=== PATIENT | male | born 1980 | race Caucasian/White ===

== ENCOUNTER 2016-08-02 21:34 | Emergency (ER) | payer OTHER ==
[~2016-08-02] VITALS: Ht 185.4 cm; Wt 96.5 kg
[2016-08-02 21:44] VITALS: Ht 185.4 cm; Wt 96.5 kg
[2016-08-03] MEDS ORDERED: DIPHTH/TET/ACEL PERTUSS (ADULT) 0.5 ML VIAL IM* ONE (00:30)
--- NOTE | 2016-08-03 01:04 | ERD ---
ER Documentation Chief Complaint Date/Time DATE: 08/03/16 TIME: 00:53 Chief Complaint nail went through his left thumb today. HPI This is a 36-year-old male who presents to emergency department today with left thumb pain after using a nail gun and accidentally putting a nail through his thumb. Denies any previous trauma. States he pulled out the nail. States he is not up-to-date on his tetanus vaccine. Denies any fevers or chills. ROS All systems reviewed and are negative except as per history of present illness. Medications Home Meds Active Scripts Sulfamethoxazole-Trimethoprim* (Bactrim* DS) 800-160 Mg Tab, 1 TAB PO BID for 7 Days, TAB Prov:JONNIE KUHN PA-C 08/03/16 Cephalexin* (Keflex*) 500 Mg Capsule, 500 MG PO QID for 7 Days, CAP Prov:JONNIE KUHNC 08/03/16 Naproxen* (Naprosyn*) 500 Mg Tablet, 500 MG PO BID Y for PAIN AND/OR INFLAMMATION, #30 TAB Prov:JONNIE KUHNC 08/03/16 Hydrocodone/Acetaminophen ([place] 10-325 Tablet) 1 Each Tablet, 1 TAB PO Q6H Y for PAIN, #10 TAB Prov:JONNIE KUHN PA-C 08/03/16 Allergies Allergies: Coded Allergies: No Known Allergy (Unverified , 08/02/16) PMhx/Soc Medical and Surgical Hx: pt denies Medical Hx, pt denies Surgical Hx Hx Alcohol Use: No Hx Substance Use: No Hx Tobacco Use: No Physical Exam Vitals Vital Signs Date Time Temp Pulse Resp B/P Pulse Ox O2 Delivery O2 Flow Rate FiO2 08/02/16 21:44 97.0 64 20 132/87 98 Physical Exam Const: No acute distress Head: Atraumatic Eyes: Normal Conjunctiva ENT: Normal External Ears, Nose and Mouth. Neck: Full range of motion..~ No meningismus. Resp: Clear to auscultation bilaterally Cardio: Regular rate and rhythm, no murmurs Abd: Soft, non tender, non distended. Normal bowel sounds Skin: Evidence of puncture wound left thumb. Localized erythema. No warmth. No evidence of cellulitis or purulent drainage Back: No midline or flank tenderness MSK: Left thumb with no obvious deformity. Evidence of puncture wound through and through. Mild swelling over thenar eminence Patient able to oppose thumb with all 5 fingers. Pulses 2+ per distal neurovascularly intact. Neur: Awake and alert Psych: Normal Mood and Affect Results 24 hrs Current Medications Medications (Trade) Dose Ordered Sig/Nina Route PRN Reason Start Time Stop Time Status Last Admin Dose Admin Diphtheria/ Tetanus/Acell Pertussis (Adacel) 0.5 ml ONCE ONCE IM* 08/03/16 00:30 08/03/16 00:31 DC 08/03/16 00:16 Radiology Main Line: [phone] DIAGNOSTIC IMAGING REPORT Patient: HUI SAM : 1980 Age: 36 Sex: M MR #: [id number] DOS: 08/02/162231 Ordering MD: PRESTON RAMIREZ MD Location: [facility] Room/Bed: PROCEDURE: Left thumb. CLINICAL INDICATION: Pain. TECHNIQUE: Three views including PA, lateral and oblique views of the left thumb were obtained. COMPARISON: None. FINDINGS: There is no fracture, dislocation or bone destruction. The joint spaces are within normal limits. Bone mineralization is within normal limits. There is no radiopaque foreign body or abnormal calcification. IMPRESSION: No evidence of fracture or radiopaque foreign body. .Ramón Harp MD, MD Date Time Electronically viewed and signed by .Ramón Harp MD, MD on 08/03/2016 01:33 .T/ CC: PRESTON RAMIREZ Procedures/MDM A 36-year-old male who presents to the emergency department today for left thumb pain after sustaining an injury earlier in the day. Patient was using a nail gone when he accidentally put the nail through his thumb. On physical exam there is some localized erythema and evidence of through and through puncture and therefore I did obtain imaging. Per the radiology report images of the left arm are unremarkable. There is no acute fracture dislocation. There is no evidence of radiopaque foreign body. Patient is afebrile and otherwise well-appearing. There is some localized erythema however there is no evidence of cellulitis, sepsis, deep space infection. His symptoms at this time consistent with thumb pain secondary to puncture wound. Able to oppose thumb and give a thumbs up sign and low suspicion for tendon injury. Patient was given TDAP injection here in the emergency department as he was not up-to-date. Patient will be given a prescription for Bactrim, Keflex as well as [place] and Naprosyn for pain he was also given an Pepe wrap. At this time the patient is stable for discharge and outpatient management. Patient should follow up with their PCP in the next 1-2 days. Also given referral information [facility]. They may return to the emergency department sooner for any persistent or worsening of symptoms. Patient understood and agreed with the plan. Departure Diagnosis: Primary Impression: Puncture wound Additional Impression: Thumb injury Encounter type: initial encounter Laterality: left Qualified Code: S69.92XA - Thumb injury, left, initial encounter Condition: Fair JONNIE KUHN PA-C Aug 03, 2016 01:03
--- NOTE | 2016-08-03 01:33 | RADRPT ---
PROCEDURE: Left thumb. CLINICAL INDICATION: Pain. TECHNIQUE: Three views including PA, lateral and oblique views of the left thumb were obtained. COMPARISON: None. FINDINGS: There is no fracture, dislocation or bone destruction. The joint spaces are within normal limits. Bone mineralization is within normal limits. There is no radiopaque foreign body or abnormal calcif ication. IMPRESSION: No evidence of fracture or radiopaque foreign body. .Ramón Harp MD, MD Date Time Electronically viewed and signed by .Ramón Harp MD, on 08/03/2016 01:33 .T/
[2016-08-03] MEDS ORDERED: NAPR-260 PO (02:03)
[2016-08-03] MEDS ORDERED: CEPH-443 PO (02:03)
[2016-08-03] MEDS ORDERED: HYDR-902 PO (02:03)
[2016-08-03] MEDS ORDERED: BACTDS PO (02:04)
[2016-08-03 02:26] VITALS: BP 125/66; PULSE 62; RESP 18; TEMP 98.2
== END 2016-08-03 02:27 | disposition home or self-care (01) ==
LOC: FTE 21:34
DX: S61.032A Puncture wound without foreign body of left thumb without damage to nail, initial encounter (principal); W29.4XXA Contact with nail gun, initial encounter; Y92.9 Unspecified place or not applicable; Z23 Encounter for immunization
CPT/HCPCS: 73140; 90471; 90715; Z7502

== ENCOUNTER 2017-01-13 08:25 | Day surgery (SDC) | payer OTHER ==
[~2017-01-13] VITALS: Ht 188 cm; Wt 90.9 kg
[2017-01-13] VITALS (7 sets, daily range): BP systolic 111–133; BP diastolic 59–84; PULSE 51–71; RESP 16–27; Ht 188 cm; Wt 90.9 kg
[~2017-01-13 08:25] MED LIST: BACTDS PO; BUPIVACAINE 0.25% (MPF) 30 ML INJ ONE; CEFAZOLIN 2 GM/50 ML (PMX) 50 ML IVPB ONE; CEPH-443 PO; HYDR-902 PO; NAPR-260 PO; SOD CHLORIDE 0.9% 1,000 ML IV ONE
[2017-01-13 09:20] LABS: ADD SCAN DIFF NO
[2017-01-13 09:23] LABS: BASOPHILS % 0.4 % (0.0-2.0); EOSINOPHILS # 0.1 10^3/ul (0.0-0.5); EOSINOPHILS % 1.1 % (0.0-7.0); HEMATOCRIT 40.5 % (42.0-52.0); HEMOGLOBIN 14.3 g/dl (14.0-18.0); LYMPHOCYTES # 1.5 10^3/ul (0.8-2.9); LYMPHOCYTES % 25.7 % (15.0-51.0); MEAN CORPUSCULAR HEMOGLOBIN 29.7 pg (29.0-33.0); MEAN CORPUSCULAR HGB CONC 35.3 g/dl (32.0-37.0); MEAN PLATELET VOLUME 11.4 fl (7.4-10.4); MONOCYTE # 0.4 10^3/ul (0.3-0.9); MONOCYTES % 6.1 % (0.0-11.0); NEUTROPHIL # 3.8 10^3/ul (1.6-7.5); NEUTROPHILS % 66.5 % (39.0-77.0); PLATELET COUNT 196 10^3/UL (140-415); RED BLOOD COUNT 4.82 10^6/ul (4.70-6.10); RED CELL DISTRIBUTION WIDTH 12.7 % (11.5-14.5); WHITE BLOOD COUNT 5.7 10^3/ul (4.8-10.8)
[2017-01-13 09:42] LABS: ALBUMIN/GLOBULIN RATIO 7.14; BILIRUBIN,INDIRECT 0.5 mg/dl (0-1.1); BILIRUBIN,TOTAL 0.5 mg/dl (0.2-1.3); CALCIUM 9.3 mg/dl (8.4-10.2); CREATININE 0.92 mg/dl (0.61-1.24); POTASSIUM 3.9 mmol/L (3.5-5.1); TOTAL PROTEIN 5.7 g/dl (6.1-8.1)
[2017-01-13 09:44] LABS: INR 1.07; PROTIME 13.9 Sec (12.2-14.2); PT RATIO 1.1
[2017-01-13 09:45] LABS: PARTIAL THROMBOPLASTIN TIME 29.3 Sec (25.0-35.0)
[2017-01-13] MEDS ORDERED: FENTAnyl 50 MCG/ML VIAL ONE (10:00)
[2017-01-13] MEDS ORDERED: SUCCINYLCHOLINE CHLORIDE 100 MG/5 ML SYG IV ONE (10:10)
[2017-01-13] MEDS ORDERED: PROPOFOL 40 ML ONE (10:10)
[2017-01-13] MEDS ORDERED: LIDOCAINE 2% (SDV) 5 ML INJ ONE (10:10)
[2017-01-13] MEDS ORDERED: CEFAZOLIN 1 GM INJ ONE (10:10)
[2017-01-13] MEDS ORDERED: ROPIVACAINE 0.5 % 30 ML VIAL ONE (10:10)
[2017-01-13] MEDS ORDERED: NEOSTIGMINE 3 MG/3 ML SYRINGE ONE (10:10)
[2017-01-13] MEDS ORDERED: GLYCOPYRROLATE 0.4 MG INJ ONE (10:10)
[2017-01-13] MEDS ORDERED: ROCURONIUM 50 MG INJ ONE (10:10)
[2017-01-13] MEDS ORDERED: FENTAnyl 50 MCG/ML VIAL IV PRN ×2 (10:30)
[2017-01-13] MEDS ORDERED: HYDROmorphONE (0.2 MG/ML) 10ML SYG IV PRN ×2 (10:30)
[2017-01-13] MEDS ORDERED: DIPHENHYDRAMINE 50 MG INJ IV PRN (10:30)
[2017-01-13] MEDS ORDERED: MEPERIDINE 25 MG INJ IV PRN (10:30)
[2017-01-13] MEDS ORDERED: METOCLOPRAMIDE 10 MG INJ IV PRN (10:30)
[2017-01-13] MEDS ORDERED: ONDANSETRON 4 MG INJ IV PRN (10:30)
--- NOTE | 2017-01-13 10:44 | OPR ---
Date/Time of Note Date/Time of Note DATE: 01/13/17 TIME: 10:43 Operative Report Preoperative Diagnosis incarcerated ventral hernia Postoperative Diagnosis same Operation/Procedure Performed lap incarcerated ventral hernia repair implantation of mesh therapeutic injection of subcutaneous marcaine Surgeon: Solomon JENNINGS G. SEONG Jan 13, 2017 10:44
--- NOTE | 2017-01-13 10:54 | OPR ---
DATE OF OPERATION: 01/13/2017 INDICATION: This is a 36-year-old male with an incarcerated ventral hernia. He requests surgical r epair. The risks, alternatives, benefits, and personnel were discussed with the patient. The patie nt expressed understanding and consented to the operation. PREOPERATIVE DIAGNOSIS: Incarcerated ventral hernia. POSTOPERATIVE DIAGNOSIS: Incarcerated ventral hernia. OPERATION PERFORMED: 1. Laparoscopic incarcerated ventral hernia repair. 2. Mesh [place] [address]. 3. Therapeutic injection [place] [address]. SURGEON: Shiloh Suazo MD SPECIMEN: None. COMPLICATIONS: None. ANESTHESIA: General. PROCEDURE: The patient was taken to the OR and prepped and draped in the usual sterile fashion. A surgical timeout was performed. IV antibiotics were given. Left upper quadrant 5-m transverse inci natalio was made with a 15 blade. Using a 5-mm optical trocar, optical entry was performed. Pneumoper itoneum was established. Left flank 12-mm optical trocar and left lower quadrant 5-mm optical troca rs were placed under direct visualization. Upon initial inspection, there was an incarcerated herni a, which was reduced excised using a laparoscopic Harmonic. Underlay mesh with Ventralight ST mesh was secured in place with SecureStrap, with approximately 4 to 5 cm of coverage in all directions. There was good hemostasis. The ports were removed under direct visualization. The skin was closed using skin arnie. Local anesthesia was injected. Dictated By: SHILOH DICK/RENÉ Conf#: [id number] DID#: [id number]
[2017-01-13] MEDS ORDERED: HYDROCODONE/APAP (5/325) TAB PO ONE (11:00)
[2017-01-13] MEDS: HYDROmorphONE (0.2 MG/ML) 10ML SYG IV PRN ×3 (11:02→11:14)
== END 2017-01-13 12:34 | disposition home or self-care (01) ==
LOC: SDS 08:25
PROVIDERS: ATTEND Surgery
DX: K43.6 Other and unspecified ventral hernia with obstruction, without gangrene (principal)
CPT/HCPCS: 49653; 80053; 85025; 85610; 85730; C1781; J0690; J1170; J2710; J2795; J3010; J7999; Z7512; Z7610